=== PATIENT | male | born 1990 | race Caucasian/White ===

== ENCOUNTER 2018-11-29 17:35 | Emergency (ER) | payer OTHER ==
[~2018-11-29] VITALS: Ht 165.1 cm; Wt 86.4 kg
[2018-11-29 17:57] VITALS: BP 132/86
[2018-11-29] MEDS ORDERED: DEXAMETHASONE 4 MG TABLET PO ONE (19:45)
== END 2018-11-29 20:34 | disposition home or self-care (01) ==
LOC: EMS 17:37
DX: J02.9 Acute pharyngitis, unspecified (principal); H66.92 Otitis media, unspecified, left ear; F17.210 Nicotine dependence, cigarettes, uncomplicated
CPT/HCPCS: 87430; 99283; 99406; J8540